=== PATIENT | female | born 1970 | race Caucasian/White ===

== ENCOUNTER → 2017-04-17 | Outpatient (CLI) | payer BC ==
[~2017-04-17] MED LIST: AUGMENTIN 875 M1 TAB PO; CLARITIN10 MG PO; NEXIUM PO; PREMPRO 0.625 M1 TA3 PO
--- NOTE | ~2017-04-17 | HM ---
[place], [place] HOLTER MONITOR REPORT [id number] UNIT #: [id number] ROOM: DOCTOR: JACKELINE ESCOBAR MD BIRTHDATE: [birth year] DOS: 04/18/2017 24-HOUR HOLTER MONITOR The monitor was in place from 04/17/2017 through 04/18/2017. The recording was analyzed and interpreted and dictated on 04/18/2017. INDICATIONS: Dizziness, atypical chest pain. FINDINGS: The basic rhythm is normal sinus with an average heart rate of 82. The heart rate in sinus rhythm ranged from 62-124 beats per minute. The patient had no ventricular arrhythmias were recorded. Particularly there were no PVCs or ventricular tachycardia. The patient had rare premature atrial contractions recorded. 15 PACs were recorded in 24 hours. No SVT was seen. There were no prolonged pauses. The patient noted a quick tightness and shortness of breath while sitting at 5:52 p.m. She was in sinus rhythm with a rate of 79 at the time. No arrhythmias or ST changes were noted. IMPRESSION: Normal 24-hour Holter monitor. JACKELINE ESCOBAR MD CM:HOLTER:HOLTER MONITOR REPORT [id number] JACKELINE ESCOBAR MD
== END | disposition home or self-care (01) ==
LOC: CARD 04-14 09:24
DX: R07.89 Other chest pain (principal); R00.2 Palpitations; R42 Dizziness and giddiness

== ENCOUNTER → 2017-04-23 | Outpatient (CLI) | payer BC ==
--- NOTE | ~2017-04-23 | ST ---
[place], [place] EXERCISE STRESS TEST REPORT NAME: OSWALDO PLATA [facility] #: [id number] UNIT #: [id number] ROOM: DOCTOR: CASSIDY KEYES MD BIRTHDATE: [birth year] DOS: 04/23/2017 EXERCISE TREADMILL STRESS TEST REPORT REFERRING PHYSICIANS: Dr. Brumfield and Dr Saez. INDICATIONS: Chest pain. DESCRIPTION OF PROCEDURE: The patient underwent standard Macario protocol stress treadmill testing. Baseline EKG showed normal sinus, no ischemic changes. Heart rate was 72 beats per minute with a blood pressure at rest of 132/76. The patient's peak heart rate was 158 with a peak blood pressure of 194/56. The patient exercised for a total of 9 minutes reaching a peak heart rate of 158, which represents 91% of maximum predicted. The patient had a hypertensive response to the exercise with a peak blood pressure of 194/56. The patient denied any chest pain. The patient denied any arrhythmias. The patient had no ischemic changes on EKG. The patient's peak level of exertion was 10 METs. The patient's Muir Treadmill score was 9. SUMMARY OF FINDINGS: 1. Negative exercise treadmill stress testing in regard to ischemic changes. 2. The patient had no anginal symptoms. 3. The patient's Muir Treadmill score was 9 portending a low risk prognosis. CASSIDY KEYES MD CM:STRESS:EXERCISE STRESS TEST REPORT [id number] CASSIDY KEYES MD
== END | disposition home or self-care (01) ==
LOC: CARD 03:21
DX: R42 Dizziness and giddiness (principal); R00.2 Palpitations; R07.89 Other chest pain

== ENCOUNTER 2017-04-26 16:52 | Emergency (ER) | payer BC ==
[~2017-04-26] VITALS: Wt 71.7 kg
[2017-04-26] MEDS ORDERED: NAPROXEN500 MG PO (16:58)
[2017-04-26] MEDS ORDERED: 'PARAFON FORTE500 M1 PO (17:15)
[2017-04-26] MEDS ORDERED: NAPROSYN500 MG PO (17:15)
[2017-04-26] MEDS ORDERED: HYDROCODONE BIT1 T11 PO (17:45)
== END 2017-04-26 17:51 | disposition home or self-care (01) ==
LOC: ED 16:52
DX: S62.647A Nondisplaced fracture of proximal phalanx of left little finger, initial encounter for closed fracture (principal); S80.812A Abrasion, left lower leg, initial encounter; Z98.51 Tubal ligation status; Z79.899 Other long term (current) drug therapy; V49.59XA Passenger injured in collision with other motor vehicles in traffic accident, initial encounter; Y93.89 Activity, other specified; Y92.89 Other specified places as the place of occurrence of the external cause; Y99.8 Other external cause status

== ENCOUNTER → 2017-05-14 | Outpatient (CLI) | payer BC ==
[~2017-05-14] MED LIST changes: +'PARAFON FORTE500 M1 PO; +HYDROCODONE BIT1 T11 PO; +NAPROSYN500 MG PO; +NAPROXEN500 MG PO
== END | disposition home or self-care (01) ==
LOC: ORTHO 00:33
DX: S62.617D Displaced fracture of proximal phalanx of left little finger, subsequent encounter for fracture with routine healing (principal); X58.XXXD Exposure to other specified factors, subsequent encounter

== ENCOUNTER → 2017-06-04 | Outpatient (CLI) | payer BC | END | disposition home or self-care (01) | LOC: ORTHO 03:17 | DX: S62.307D Unspecified fracture of fifth metacarpal bone, left hand, subsequent encounter for fracture with routine healing (principal); X58.XXXD Exposure to other specified factors, subsequent encounter ==

== ENCOUNTER → 2017-06-20 | Outpatient (CLI) | payer BC | END | disposition home or self-care (01) | LOC: LAB 03:03 → ORTHO 03:03 | DX: S62.647D Nondisplaced fracture of proximal phalanx of left little finger, subsequent encounter for fracture with routine healing (principal); X58.XXXD Exposure to other specified factors, subsequent encounter ==

== ENCOUNTER → 2017-07-18 | Outpatient (CLI) | payer BC | END | disposition home or self-care (01) | LOC: ORTHO 03:04 | DX: S62.647D Nondisplaced fracture of proximal phalanx of left little finger, subsequent encounter for fracture with routine healing (principal); M25.442 Effusion, left hand; X58.XXXD Exposure to other specified factors, subsequent encounter ==

== ENCOUNTER → 2017-08-15 | Outpatient (CLI) | payer BC | END | disposition home or self-care (01) | LOC: ORTHO 01:59 | DX: S62.607D Fracture of unspecified phalanx of left little finger, subsequent encounter for fracture with routine healing (principal); X58.XXXD Exposure to other specified factors, subsequent encounter ==

== ENCOUNTER → 2018-03-18 | Outpatient (CLI) | payer BC | END | disposition home or self-care (01) | LOC: MAMMO 13:48 | DX: Z12.31 Encounter for screening mammogram for malignant neoplasm of breast (principal) ==

== ENCOUNTER 2018-11-20 07:01 | Emergency (ER) | payer BC ==
[~2018-11-20] VITALS: Ht 160 cm; Wt 70.3 kg
[2018-11-20] MEDS ORDERED: OMEPRAZOLE D/R20 MG PO (07:19)
[2018-11-20] MEDS ORDERED: PREMPRO 0.625-1 EACH PO (07:20)
[2018-11-20] MEDS ORDERED: EC NAPROSYN500 MG PO (09:19)
== END 2018-11-20 09:20 | disposition home or self-care (01) ==
LOC: ED 07:01
DX: S30.1XXA Contusion of abdominal wall, initial encounter (principal); Z79.899 Other long term (current) drug therapy; W10.9XXA Fall (on) (from) unspecified stairs and steps, initial encounter; Y93.01 Activity, walking, marching and hiking; Y92.89 Other specified places as the place of occurrence of the external cause; Y99.8 Other external cause status

== ENCOUNTER → 2019-06-09 | Outpatient (CLI) | payer BC ==
[~2019-06-09] MED LIST changes: +EC NAPROSYN500 MG PO; +OMEPRAZOLE D/R20 MG PO; +PREMPRO 0.625-1 EACH PO
== END | disposition home or self-care (01) ==
LOC: MAMMO 14:02
DX: Z12.31 Encounter for screening mammogram for malignant neoplasm of breast (principal)

== ENCOUNTER → 2019-06-30 | Outpatient (CLI) | payer BC | END | disposition home or self-care (01) | LOC: MAMMO 08:40 | DX: R92.1 Mammographic calcification found on diagnostic imaging of breast (principal) ==

== ENCOUNTER → 2022-12-26 | Outpatient (CLI) | payer BC | END | disposition home or self-care (01) | LOC: RAD 08:34 → LAB 08:34 | PROVIDERS: ATTEND Nurse Practitioner Family | DX: M53.3 Sacrococcygeal disorders, not elsewhere classified (principal); M25.78 Osteophyte, vertebrae; M54.50 Low back pain, unspecified; G89.29 Other chronic pain; K21.9 Gastro-esophageal reflux disease without esophagitis; J30.9 Allergic rhinitis, unspecified; R05.3 Chronic cough ==

== ENCOUNTER → 2023-04-07 | Day surgery (SDC) | payer BC ==
[~2023-04-07] VITALS: Ht 160 cm; Wt 79.4 kg
[~2023-04-07] MED LIST changes: +ZYRTEC10 M2 PO
[2023-04-07 06:50] VITALS: BP 127/67
[2023-04-07 08:13] VITALS: BP 93/56
[2023-04-07 08:30] VITALS: BP 105/66
[2023-04-07 08:38] VITALS: BP 104/65
[2023-04-07 08:45] VITALS: BP 119/69
== END | disposition home or self-care (01) ==
LOC: SDC 04-03 08:00
PROVIDERS: ATTEND Obstetrics & Gynecology
DX: N90.1 Moderate vulvar dysplasia (principal); K21.9 Gastro-esophageal reflux disease without esophagitis; Z98.890 Other specified postprocedural states; Z79.899 Other long term (current) drug therapy

== ENCOUNTER → 2023-05-14 | Outpatient (CLI) | payer BC ==
[2023-05-14 07:54] LABS: BASO # 0.1 10*3/uL (0.0-0.1); BASO % 0.8 % (0.0-1.0); EOS # 0.2 10*3/uL (0.0-0.4); EOS % 3.1 % (1.0-4.0); HEMATOCRIT 40.5 % (37.0-47.0); LYMPH # 2.4 10*3/uL (1.3-4.4); LYMPH % 36.7 % (27.0-41.0); MEAN CELL VOLUME 92.3 fl (81.0-99.0); MEAN CORPUSCULAR HGB 29.4 pg (27.0-31.0); MEAN CORPUSCULAR HGB CONC 31.9 g/dl (33.0-37.0); MEAN PLATELET VOLUME 9.4 fl (9.6-12.3); MONO # 0.6 10*3/uL (0.1-1.0); MONO % 9.6 % (3.0-9.0); NEUT # 3.2 10*3/uL (2.3-7.9); NEUT % 49.6 % (47.0-73.0); PLATELET COUNT AUTOMATED 252 10*3/uL (130-400); RED BLOOD COUNT 4.39 10*6/uL (4.10-5.10); RED CELL DISTRI WIDTH 13.1 % (0-14.5); WHITE BLOOD COUNT 6.4 10*3/uL (4.8-10.8)
[2023-05-14 08:23] LABS: ALKALINE PHOSPHATASE 87 U/L (46-116); BUN 11 mg/dl (9-23); CHLORIDE 110 mmol/L (98-107); CHOLESTEROL 136 mg/dL (<200); LDL CHOLESTEROL 76 mg/dL (9-159); POTASSIUM 4.3 mmol/L (3.4-5.1); SGPT/ALT 15 U/L (10-49); TOTAL PROTEIN 6.7 gm/dL (6.0-8.0); TRIGLYCERIDES 133 mg/dl (<150)
== END | disposition home or self-care (01) ==
LOC: LAB 07:41
PROVIDERS: ATTEND Nurse Practitioner Family
DX: Z13.220 Encounter for screening for lipoid disorders (principal); K21.9 Gastro-esophageal reflux disease without esophagitis; E66.3 Overweight

== ENCOUNTER → 2023-06-06 | Outpatient (CLI) | payer BC ==
[2023-06-06 08:32] LABS: BASO # 0.1 10*3/uL (0.0-0.1); BASO % 0.6 % (0.0-1.0); EOS # 0.2 10*3/uL (0.0-0.4); EOS % 2.4 % (1.0-4.0); HEMATOCRIT 42.3 % (37.0-47.0); LYMPH # 2.3 10*3/uL (1.3-4.4); MEAN CORPUSCULAR HGB 28.8 pg (27.0-31.0); MEAN CORPUSCULAR HGB CONC 31.7 g/dl (33.0-37.0); MEAN PLATELET VOLUME 9.5 fl (9.6-12.3); MONO # 0.7 10*3/uL (0.1-1.0); MONO % 8.5 % (3.0-9.0); NEUT # 4.6 10*3/uL (2.3-7.9); NEUT % 59.2 % (47.0-73.0); PLATELET COUNT AUTOMATED 276 10*3/uL (130-400); RED BLOOD COUNT 4.65 10*6/uL (4.10-5.10); RED CELL DISTRI WIDTH 13.1 % (0-14.5); WHITE BLOOD COUNT 7.8 10*3/uL (4.8-10.8)
[2023-06-06 09:14] LABS: ALKALINE PHOSPHATASE 96 U/L (46-116); BUN 15 mg/dl (9-23); CHLORIDE 107 mmol/L (98-107); CHOLESTEROL 167 mg/dL (<200); LDL CHOLESTEROL 106 mg/dL (9-159); POTASSIUM 3.9 mmol/L (3.4-5.1); SGPT/ALT 18 U/L (10-49); TOTAL PROTEIN 7.1 gm/dL (6.0-8.0); TRIGLYCERIDES 121 mg/dl (<150)
== END | disposition home or self-care (01) ==
LOC: LAB 08:04
PROVIDERS: ATTEND Nurse Practitioner Family
DX: K21.9 Gastro-esophageal reflux disease without esophagitis (principal); J30.9 Allergic rhinitis, unspecified; R73.01 Impaired fasting glucose

== ENCOUNTER → 2024-04-02 | Outpatient (CLI) | payer BC ==
[2024-04-02 12:38] LABS: BASO % 0.4 % (0.0-1.0); EOS # 0.3 10*3/uL (0.0-0.4); EOS % 4.3 % (1.0-4.0); HEMATOCRIT 42.1 % (37.0-47.0); LYMPH # 3.1 10*3/uL (1.3-4.4); LYMPH % 39.6 % (27.0-41.0); MEAN CELL VOLUME 91.5 fl (81.0-99.0); MEAN CORPUSCULAR HGB CONC 32.8 g/dl (33.0-37.0); MEAN PLATELET VOLUME 9.5 fl (9.6-12.3); MONO # 0.7 10*3/uL (0.1-1.0); MONO % 8.4 % (3.0-9.0); NEUT # 3.6 10*3/uL (2.3-7.9); PLATELET COUNT AUTOMATED 257 10*3/uL (130-400); WHITE BLOOD COUNT 7.7 10*3/uL (4.8-10.8)
[2024-04-02 13:11] LABS: ALKALINE PHOSPHATASE 101 U/L (46-116); BUN 13 mg/dl (9-23); CHLORIDE 108 mmol/L (98-107); CHOLESTEROL 161 mg/dL (<200); LDL CHOLESTEROL 82 mg/dL (9-159); SGPT/ALT 18 U/L (5-49); TOTAL PROTEIN 7.1 gm/dL (6.0-8.0); TRIGLYCERIDES 231 mg/dl (<150)
== END ==
LOC: LAB 12:15
PROVIDERS: ATTEND Nurse Practitioner Family
DX: Z12.11 Encounter for screening for malignant neoplasm of colon (principal); Z12.12 Encounter for screening for malignant neoplasm of rectum; K21.9 Gastro-esophageal reflux disease without esophagitis; J30.9 Allergic rhinitis, unspecified

== ENCOUNTER → 2024-04-06 | Outpatient (CLI) | payer BC | END | disposition home or self-care (01) | LOC: RAD 16:05 | PROVIDERS: ATTEND Nurse Practitioner Family | DX: R00.2 Palpitations (principal); J18.9 Pneumonia, unspecified organism; R05.8 Other specified cough; K21.9 Gastro-esophageal reflux disease without esophagitis; R07.89 Other chest pain ==

== ENCOUNTER → 2024-04-21 | Outpatient (CLI) | payer BC | LOC: CARD 00:05 | PROVIDERS: ATTEND Nurse Practitioner Family | DX: R00.2 Palpitations (principal); J18.9 Pneumonia, unspecified organism; R05.8 Other specified cough; K21.9 Gastro-esophageal reflux disease without esophagitis; R07.89 Other chest pain ==

== ENCOUNTER → 2024-05-05 | Outpatient (CLI) | payer BC | END | disposition home or self-care (01) | LOC: CARD 04-30 09:30 | PROVIDERS: ATTEND Internal Medicine Cardiovascular Disease | DX: R07.89 Other chest pain (principal); J18.9 Pneumonia, unspecified organism; R05.8 Other specified cough; K21.9 Gastro-esophageal reflux disease without esophagitis; R00.2 Palpitations ==

== ENCOUNTER → 2025-02-17 | Outpatient (CLI) | payer BC ==
[2025-02-17 12:32] LABS: BUN 18 mg/dl (9-23); CHLORIDE 110 mmol/L (98-107); POTASSIUM 3.5 mmol/L (3.4-5.1)
== END | disposition home or self-care (01) ==
LOC: LAB 11:53
PROVIDERS: ATTEND Technician/Technologist Optician
DX: E66.811 Obesity, class 1 (principal); E66.09 Other obesity due to excess calories; Z68.33 Body mass index [BMI] 33.0-33.9, adult